=== PATIENT | male | born 1960 | race African-American/Black ===

== ENCOUNTER 2018-02-21 15:13 | Outpatient (CLI) | payer OTHER | END 2018-02-21 15:14 | disposition home or self-care (01) | LOC: BICCT 15:13 | PROVIDERS: ATTEND Physical Medicine & Rehabilitation | DX: Z09 Encounter for follow-up examination after completed treatment for conditions other than malignant neoplasm (principal); M51.86 Other intervertebral disc disorders, lumbar region; M48.061 Spinal stenosis, lumbar region without neurogenic claudication; M89.38 Hypertrophy of bone, other site; Z98.1 Arthrodesis status | CPT/HCPCS: 72131 ==